=== PATIENT | male | born 1980 | race Caucasian/White ===

== ENCOUNTER 2017-12-06 18:22 | Emergency (ER) | payer OTHER ==
[~2017-12-06] VITALS: Ht 193 cm; Wt 129.3 kg
[2017-12-06] MEDS ORDERED: ZESTORETIC 20-1 EAC3 PO (18:37)
[2017-12-06] MEDS ORDERED: METFORMIN HCL500 MG PO (18:38)
[2017-12-06] MEDS ORDERED: XANAX 0.25 MG0.25 MG PO (18:38)
[2017-12-06] MEDS ORDERED: AMITRIPTYLINE100 MG PO (18:38)
[2017-12-06] MEDS ORDERED: XANAX 0.5 MG0.5 MG PO (18:38)
[2017-12-06] MEDS ORDERED: ACID REDUCER20 M1 PO (18:39)
[2017-12-06] MEDS ORDERED: FISH OIL 1,001000 M2 PO (18:39)
[2017-12-06] MEDS ORDERED: SIMVASTATIN40 MG PO (18:39)
[2017-12-06 18:51] LABS: ABSOLUTE BASOPHILS 0.1 thou/uL (0.0-0.2); ABSOLUTE MONOCYTES 0.4 thou/uL (0.0-1.2); ABSOLUTE NEUTROPHILS 4.9 thou/uL (1.6-8.1); BASOPHILS 0.9 %; EOSINOPHILS 0.6 %; HEMATOCRIT 44.9 % (42.0-52.0); HEMOGLOBIN 15.3 gm/dL (14.0-18.0); LYMPHOCYTES 27.1 %; MCH 29.8 pg (26.0-34.0); MCV 87.6 fL (80.0-100.0); MONOCYTES 5.6 %; NUCLEATED RBCS 0 /100WBC; PLATELET COUNT* 250 thou/uL (150-400); POLYS 65.8 %; RBC 5.13 mil/uL (4.50-6.00); RDW-CV 13.7 % (10.5-14.5); WBC 7.4 thou/uL (4.0-11.0)
[2017-12-06 18:59] LABS: ANION GAP 8 mmol/L (7-16); BUN 13 mg/dL (7-18); CALCIUM 9.2 mg/dL (8.5-10.1); CHLORIDE 99 mmol/L (98-107); CO2 28 mmol/L (21-32); CREATININE 0.9 mg/dL (0.6-1.3); GLUCOSE 237 mg/dL (70-99); POTASSIUM 3.6 mmol/L (3.5-5.1); SODIUM 135 mmol/L (136-145)
[2017-12-06 19:09] LABS: ALKALINE PHOSPHATASE 58 U/L (46-116); SGOT 46 U/L (15-37); SGPT 103 U/L (30-65); TOTAL BILIRUBIN 0.4 mg/dL (<0.1-1.0); TOTAL PROTEIN 7.2 g/dL (6.4-8.2); TROPONIN-I LEVEL <0.06 ng/mL (<0.06)
[2017-12-06 19:55] LABS: URINE BILIRUBIN NEGATIVE (Negative); URINE BLOOD NEGATIVE (Negative); URINE CLARITY CLEAR; URINE COLOR YELLOW; URINE GLUCOSE-RANDOM 1+ (Negative); URINE KETONES NEGATIVE (Negative); URINE LEUKOCYTES NEGATIVE (Negative); URINE NITRITE NEGATIVE (Negative); URINE PROTEIN NEGATIVE (Negative); URINE SPECIFIC GRAVITY 1.015 (1.005-1.030); URINE UROBILINOGEN 0.2 E.U./dl (0.2-1.0)
[2017-12-06 20:10] LABS: AMP/METHAMP Negative (Negative); BARBITURATES Negative (Negative); BENZODIAZEPINES POSITIVE (Negative); COCAINE Negative (Negative); METHADONE Negative (Negative); OPIATES Negative (Negative); PCP Negative (Negative); THC Negative (Negative)
[2017-12-06 20:57] VITALS: BP 121/78
--- NOTE | 2017-12-07 11:52 | EKG ---
[place] [address] ELECTROCARDIOGRAM REPORT Name: MORENITA PETIT Room: [facility]#: [id number] Admission: 12/06/17 Attend Phys: Discharge: 12/06/17 Date of : 84 Report #: [id number] THIS REPORT FOR: //name// [facility] ED Test Date: 2017-12-06 Test Time: 18:25:37 Pat Name: MORENITA CORNELL Department: Room: Gender: M Junior Php Developer: MS : 1980 Requested By: Shubham Martel Order Number: [id number] MD: Dennis Mejia Measurements Intervals [place] Rate: 101 P: 68 [place]: 147 QRS: -29 QRSD: 111 T: 57 QT: 338 QTc: 439 Interpretive Statements Sinus tachycardia Probable left atrial enlargement Borderline left axis deviation No previous ECG available for comparison Electronically Signed On 12-07-2017 11:52:43 CDT by Dennis Mejia [email or web address] <ELECTRONICALLY SIGNED> By: Dennis Mejia MD, [facility] 12/07/17 1152 D: [id number] Dennis Mejia MD, FACC /EPI
== END 2017-12-06 21:01 | disposition home or self-care (01) ==
LOC: M.ERS 18:22
PROVIDERS: Emergency Medicine; Emergency Medicine Emergency Medical Services
DX: R00.2 Palpitations (principal); E11.9 Type 2 diabetes mellitus without complications; F41.9 Anxiety disorder, unspecified; E78.00 Pure hypercholesterolemia, unspecified; I10 Essential (primary) hypertension; Z88.8 Allergy status to other drugs, medicaments and biological substances; Z87.891 Personal history of nicotine dependence